=== PATIENT | female | born 2000 | race Caucasian/White ===

== ENCOUNTER 2024-07-07 08:50 | Emergency (ER) | payer MEDICAID, SELFPAY ==
--- OUTSIDE RECORDS SUMMARY | 2024-07-07 08:59 | XMS_ITS | Encounter Summary ---
Author Organization [facility] Address [address] [place] [address] Phone Care Team Providers Care Aboriginal Education Teacher Name Role Phone Giovanna Gonzalez APRN, CNP Primary Care Provider Encounter Details Date Type Department Care Team (Late st Contact Info) Description 07/03/2024 Transcribe Orders [facility] Central Scheduling [address] [place] [address] Giovanna Gonzalez APRN, MARKET PRESIDENT [address] [place] [address] Social History Tobacco Use Types Packs/Day Years Used Date Smoking Tobacco: Never Smokeless Tobacco: Never Alcohol Use Standard Drinks/Week Comments No 0 (1 standard drink = 0.6 oz pur e alcohol) Sexually Active Control Partners Comments Yes Comments No Sex and Gender Information Value Date Recorded Sex Assigned at Not on file Legal Sex Female 2:16 PM DRUG COORDINATOR Gender Identity Not on file Sexual Orientation Not on file documented as of this encounter Plan of Treatment Upcoming Encounters Date Type Department Care Team (Late st Contact Info) Description 07/16/2024 7:30 AM CDT Appointment [facility] Ultrasound [address] [place] [id number] Giovanna Gonzalez APRN, MARKET PRESIDENT [address] [place] [address] Giovanna Gonzalez APRN, MARKET PRESIDENT [address] [place] [address] Discharge Disposition: Discharged to home or Selfcare 07/16/2024 8:30 AM CDT Appointment [facility] Ultrasound [address] [place] [address] Giovanna Gonzalez APRN, LEVI [address] [place] [address] Discharge Disposition: Discharged to home or Selfcare documented as of this encounter Visit Diagnoses Not on filedocumented in this encounter Additional Health Concerns Assessment Noted Time PHQ-9 Depression Total Score: 0 03/28/19 18 8:00 AM DRUG COORDINATOR documented as of this encounter Care Teams Aboriginal Education Teacher Relationship Specialty Start Date End Date Giovanna Gonzalez APRN, MARKET PRESIDENT [address] [place] [address] PCP - General Advanced Practice Nurse 06/14/24 documented as of this encounter
--- OUTSIDE RECORDS SUMMARY | 2024-07-07 08:59 | XMS_ITS | Encounter Summary ---
Author Organization [facility] Address [address] [place] [address] Phone Care Team Providers Care Shade Maker Name Role Phone Giovanna Gonzalez APRN, CNP Primary Care Provider Encounter Details Date Type Department Care Team (Late st Contact Info) Description 07/03/2024 Transcribe Orders [facility] SCHEDULING [address] [place] [address] Giovanna Gonzalez APRN, TRAY FILLER [address] [place] [address] Social History Tobacco Use Types Packs/Day Years Used Date Smoking Tobacco: Never Smokeless Tobacco: Never Alcohol Use Standard Drinks/Week Comments No 0 (1 standard drink = 0.6 oz pur e alcohol) Sexually Active Control Partners Comments Yes Comments No Sex and Gender Information Value Date Recorded Sex Assigned at Not on file Legal Sex Female 2:16 PM ANTIQUE JEWELRY REPAIRER Gender Identity Not on file Sexual Orientation Not on file documented as of this encounter Plan of Treatment Upcoming Encounters Date Type Department Care Team (Late st Contact Info) Description 07/16/2024 7:30 AM CDT [facility]ment [facility] Ultrasound 1 [place] [address] Giovanna Gonzalez APRN, TRAY FILLER [address] [place] [address] Giovanna Gonzalez APRN, TRAY FILLER [address] [place] [address] Discharge Disposition: Discharged to home or Selfcare 07/16/2024 8:30 AM CDT Appointment [facility] Ultrasound 1 [place] [address] Giovanna Gonzalez APRN, TRAY FILLER [address] [place] [address] Discharge Disposition: Discharged to home or Selfcare documented as of this encounter Visit Diagnoses Not on filedocumented in this encounter Additional Health Concerns Assessment Noted Time PHQ-9 Depression Total Score: 0 03/28/19 18 8:00 AM ANTIQUE JEWELRY REPAIRER documented as of this encounter Care Teams Shade Maker Relationship Specialty Start Date End Date Giovanna Gonzalez APRN, TRAY FILLER [address] [place] [address] PCP - General Advanced Practice Nurse 06/14/24 documented as of this encounter
--- OUTSIDE RECORDS SUMMARY | 2024-07-07 08:59 | XMS_ITS | Referral Summary ---
Author Organization [facility] Address [address] [place] [address] Care Team Providers Care Ad Compositor Name Role Phone Giovanna Gonzalez NP Primary Care Provider [phone] Encounters Date Type Department Care Team Description 07/04/2024 Orders Only [facility] Health Information Management 1 [place] [address] Scanning, Provider from Last 3 Months Allergies Active Allergy Reactions Criticality Noted Date Comments Depo-Provera Contraceptive Seizures High 4 Used x 6-12 months. With last injection developed tachycardia, seizure activity. Medications levonorgestreL-eth inyl estrad (Levora-28) 0.15-0.03 mg per tabletIndications: Oral contraceptive pill surveillance Take 1 tablet by mouth daily 84 tablet 4 4 Active ibuprofen (ADVIL,MOTRIN) 800 mg tabletIndications: Facial trauma, initial encounter Take 1 tablet (800 mg total) by mouth 3 (three) times a day 90 tablet 4 Active Active Problems Problem Noted Date Diagnosed Date Nausea and vomiting 03/25/2016 Overview (06/16/2016): Nausea and vomiting, intractability of vomiting not specified, unspecified vomiting type Acute sinusitis 04/06/2015 Overview (10/10/2023): Note: Unchanged Viral syndrome 04/06/2015 Overview (10/10/2023): Note: Unchanged Allergic rhinitis 11/10/2013 Overview (10/10/2023): Note: Unchanged Acne 03/01/2013 Overview (10/10/2023): Note: Unchanged Immunizations Immunization Administration Dates Next Due Tdap 07/30/2021 Social History Tobacco Use Types Packs/Day Years Used Date Smoking Tobacco: Former Smokeless Tobacco: Never Tobacco Cessation:Counseling Given: Yes Alcohol Use Standard Drinks/Week Comments No 0 (1 standard drink = 0.6 oz pur e alcohol) Personal Safety Answer Date Recorded Getting School Help Needed Not on file 04/11 Comments No Sex and Gender Information Value Date Recorded Sex Assigned at Not on file Legal Sex Female 5:08 AM CDT Gender Identity Not on file Sexual Orientation Not on file Occupation Industry Job Start Date Job End Date Not on file Not on file Not on file Not on file Last Filed Vital Signs Vital Sign Reading Time Taken Comments Blood Pressure 110/70 10/10/2023 12:26 PM CDT Pulse 100 10/10/2023 12:26 PM CDT Temperature 37.1 C (98.7 F) 10/10/2023 12:26 PM CDT Respiratory Rate 20 10/10/2023 12:26 PM CDT Oxygen Saturation 100% 10/10/2023 12:26 PM CDT Inhaled Oxygen Concentration - - Weight 56.7 kg (125 lb) 10/10/2023 12:26 PM CDT Height 165.1 cm (5' 5 ) 04/21/2023 9:44 AM AIRLINE STEWARDESS Body Mass Index 20.8 04/21/2023 9:44 AM AIRLINE STEWARDESS Plan of Treatment Not on file Procedures Procedure Name Priority Date/Time Associated Diagnosis Comments SCAN - OTHER ORDERS 07/04/2024 N. GONORRHOEAE/C. TRACHOMATIS AMPLIFICATION Routine 04/21/2023 11:22 AM AIRLINE STEWARDESS Screening examination for venereal disease PAP WITH REFLEX TO HIGH RISK HPV Routine 04/21/2023 10:16 AM AIRLINE STEWARDESS Screening for malignant neoplasm of the cervix from Last 3 Months or Most Recently Relevant to Health Maintenance Results * SCAN - OTHER ORDERS (07/04/2024) us Provider Scanning Final Result * N. gonorrhoeae/C. trachomatis Amplification Thin prep (04/21/2023 11:22 AM AIRLINE STEWARDESS) C. trachomatis Not Detected GRACE VASQUES Comment:Testing performed by : [facility], [address] [place] [address]., [address] N. gonorrhoeae Not Detected GRACE VASQUES Comment: Interpretive Data This assay detects Chlamydia trachomatis and Neisseria gonorrhoeae by nucleic acid amplification testing (NAAT). This assay has been cleared by the [place] Food and Drug administration. The performance characteristics of this test have been verified by the [facility] Molecular Infectious Disease laboratory. The performance characteristics of this test have not been evaluated in individuals less than 14 years of age. Current Interpretive Data was last revised on 2023. Testing performed by: [facility], [address] [place] [address]., [address] Thin prep (None) 04/21/2023 11:22 AM AIRLINE STEWARDESS 04/24/2023 12:51 PM AIRLINE STEWARDESS Cristina Grimes MD LAB MICROBIOLOGY - [facility] ORDERABLES Final Result GRACE [address] Department [place] [address] * Pap with reflex to High Risk HPV and Genotyping (Cytology Component) (04/21/2023 10:16 AM AIRLINE STEWARDESS) Thin prep (Pap test) 04/21/2023 10:16 AM AIRLINE STEWARDESS 04/21/2023 10:16 AM AIRLINE STEWARDESS Narrative PATHOLOGY CH - 04/26/2023 3:26 PM AIRLINE STEWARDESS [facility] Department of Pathology [address] [place] [id number] Final Report Note to Patients: This report may contain a detailed description of human tissue sent by a health care provider to the laboratory for pathologic evaluation. The content of this report is essential for diagnosis and may provide important critical findings. This information may be unfamiliar to patients to review without a medical professional present. It is advised that the patient review this report in the presence of a health care provider who can answer questions and explain the details. Patient Name: ALIVIA HAMMOND Address: [address] [place] [id number] Gender: F : 2000 (Age: 23) Service: Location: [facility] #: [id number] Patient Type: SPECIMEN Taken: 04/21/2023 Received: 04/21/2023 Accessioned:: 04/24/2023 Reported: 04/26/2023 Physician(s): MD Cristina Simmons MD Diagnosis: SOURCE OF SPECIMEN Imaged Thinprep Pap Test w/ Reflex HPV - Firewall Engineer Cytologic Material: STATEMENT OF ADEQUACY - Satisfactory for evaluation; endocervical/transformation zone component present GENERAL CATEGORIZATION: - Negative for intraepithelial lesion or malignancy INTERPRETATION: - Reactive/reparative cell changes ALFREDO Wong(ASCP)Afshin Justice M.D. Report Electronically Reviewed and Signed Out By Afshin Justice M.D. 04/26/2023 15:26:25Specimen(s) Received: A: Imaged Thinprep Pap Test w/ Reflex HPV - Firewall Engineer Cytologic Material Clinical History: Last Menstrual Period: 04/15/23 The Pap test is a screening test used to aid in the detection of cervical cancer and its precursors. It should not be the sole means by which malignant and premalignant lesions are diagnosed. Both false negative and false positive results may occur. It also has poor sensitivity for the detection of endometrial lesions and should not be used to evaluate suspected endometrial abnormalities. For these reasons it is most important to obtain Pap tests at regular intervals. The performance characteristics of some immunohistochemical stains, fluorescence in-situ hybridization tests and immunophenotyping by flow cytometry cited in this report (if any) were determined by the Surgical Pathology Department at [facility] as part of an ongoing quality assurance advisor program and in compliance with federally mandated regulations drawn from the Clinical Laboratory Improvement Act of 1988 (CLIA '88). Some of these tests rely on the use of analyte specific reagents and are subject to specific labeling requirements by the [place] Food and Drug Administration. Such diagnostic tests may only be performed in a facility that is certified by the Department of Health and Human Services as a high complexity laboratory under CLIA '88. The FDA has determined that such clearance or approval is not necessary. This test is used for clinical purposes. It should not be regarded as investigational or for research. Nevertheless, federal rules concerning the medical use of analyte specific reagents require that the following disclaimer be attached to the report: This test was developed and its performance characteristics determined by the Surgical Pathology Department [facility]. It has not been cleared or approved by the U. S. Food and Drug Administration. Cristina Grimes MD LAB CYTOLOGY ORDERABL ES Final Result PATHOLOGY [address] [place] [address] from Last 3 Months or Most Recently Relevant to Health Maintenance Insurance IDPA Care Teams Ad Compositor Relationship Specialty Start Date End Date Giovanna Gonzaelz NP [address] [place] [address] PCP - General Nurse Practitioner 06/25/24
--- OUTSIDE RECORDS SUMMARY | 2024-07-07 08:59 | XMS_ITS | Clinical Summary ---
Author Organization [facility] Address [address] [place] [address] Care Team Providers Care Food Trades Assistants Name Role Phone Giovanna Gonzalez NP Primary Care Provider [phone] Allergies Active Allergy Reactions Criticality Noted Date [...] Unchanged Acne 03/01/2013 Overview (10/10/2023): Note: Unchanged Encounters Date Type Department Care Team Description 07/04/2024 Orders Only [facility] Health Information Management 1 [place] [address] Scanning, Provider from Last 3 Months Immunizations Immunization Administration Dates Next Due Tdap 07/30/2021 Family History Medical History Relation Name Comments Lung cancer Paternal Grandfather Stroke Paternal Grandfather Relation Name Status Comments Paternal Grandfather Social History Tobacco Use Types Packs/Day Years [...] file Not on file Not on file Obstetrics History Para Term AB IAB SAB Ectopic Multiple Livin g Live Births 1 1 1 Date Outcome GA Total Labor Labor/2nd/3rd Weight Sex Type Anes PTL Tala A1 A5 Name Clin 10/2021 SAB SAB Last Filed Vital Signs Vital Sign Reading [...] cm (5' 5 ) 04/21/2023 9:44 AM POWERHOUSE MECHANIC SUPERVISOR Body Mass Index 20.8 04/21/2023 9:44 AM POWERHOUSE MECHANIC SUPERVISOR Plan of Treatment Health Maintenance Due Date Last Done Comments Depression Screening 2000 Hepatitis C Screening 2000 HPV Vaccines (1 - 3-dose series) 01/11/2015 Cervical Cancer Screening 04/21/2024 04/21/2023 Chlamydia and Gonorrhea (GC/CT) Screening 04/21/2024 04/21/2023 Regular Well Visit/Exam 18-64 04/21/2024 04/21/2023 Influenza Vaccine (Season Ended) 2024 DTaP/Tdap/Td Vaccine (8 - Td or Tdap) 07/31/2031 07/30/2021, 09/25/2012, 08/05/2005, Additional history exists Pneumococcal vaccine <65 Aged Out 001, 2000, 2000, Additional history exists No longer eligible based on patient's age to complete this topic Hepatitis B Screening Completed 03/01/2001 , 03/01/2001, 2000, Additional history exists Varicella Vaccines Completed 09/25/2012, 03/01/2001 Procedures Procedure Name Priority Date/Time Associated Diagnosis Comments SCAN - OTHER ORDERS 07/04/2024 N. GONORRHOEAE/C. TRACHOMATIS AMPLIFICATION Routine 04/21/2023 11:22 AM POWERHOUSE MECHANIC SUPERVISOR Screening examination for venereal disease PAP WITH REFLEX TO HIGH RISK HPV Routine 04/21/2023 10:16 AM POWERHOUSE MECHANIC SUPERVISOR Screening for malignant neoplasm of the cervix from Last 3 Months or Most Recently Relevant to Health Maintenance Results * SCAN - OTHER ORDERS (07/04/2024) us Provider Scanning Final Result * N. gonorrhoeae/C. trachomatis Amplification Thin prep (04/21/2023 11:22 AM POWERHOUSE MECHANIC SUPERVISOR) C. trachomatis Not Detected GRACE VASQUES Comment:Testing performed by : [facility], [address] [facility], [place]., [address] N. gonorrhoeae Not Detected GRACE Comment: Interpretive Data This assay detects Chlamydia trachomatis and Neisseria gonorrhoeae by nucleic acid amplification testing (NAAT). This assay has been cleared by the [place] Food and Drug administration. The performance characteristics of this test have been verified by the [facility] Molecular Infectious Disease laboratory. The performance characteristics of this test have not been evaluated in individuals less than 14 years of age. Current Interpretive Data was last revised on 2023. Testing performed by: [facility], [address] [place] [address]., [address] Thin prep (None) 04/21/2023 11:22 AM POWERHOUSE MECHANIC SUPERVISOR 04/24/2023 12:51 PM POWERHOUSE MECHANIC SUPERVISOR us Cristina Grimes MD LAB MICROBIOLOGY - [facility] ORDERABLES Final Result GRACE [address] Department of Laboratories [place] [id number] * Pap with reflex to High Risk HPV and Genotyping (Cytology Component) (04/21/2023 10:16 AM POWERHOUSE MECHANIC SUPERVISOR) Thin prep (Pap test) 04/21/2023 10:16 AM POWERHOUSE MECHANIC SUPERVISOR 04/21/2023 10:16 AM POWERHOUSE MECHANIC SUPERVISOR Narrative PATHOLOGY - 04/26/2023 3:26 PM POWERHOUSE MECHANIC SUPERVISOR [facility] Department of Pathology [address] [place] [phone] Final Report Note to Patients: This [...] the details. Patient Name: ALIVIA HAMMOND Address: [address] [place] [address] Gender: F : 2000 (Age: 23) Service: Location: Hospital #: [id number] Patient Type: SPECIMEN Taken: 04/21/2023 Received: 04/21/2023 Accessioned:: 04/24/2023 Reported: 04/26/2023 Physician(s): MD Cristina Simmons MD Diagnosis: SOURCE OF SPECIMEN Imaged Thinprep Pap Test w/ Reflex HPV - It Intern Cytologic Material: STATEMENT OF ADEQUACY - Satisfactory for evaluation; endocervical/transformation zone component present GENERAL CATEGORIZATION: - Negative for intraepithelial lesion or malignancy INTERPRETATION: - Reactive/reparative cell changes ALFREDO Wong(ASCP)Afshin Justice M.D. Report Electronically Reviewed and Signed Out By Afshin Justice M.D. 04/26/2023 15:26:25Specimen(s) Received: A: Imaged Thinprep Pap Test w/ Reflex HPV - It Intern Cytologic Material Clinical History: Last Menstrual Period: [...] determined by the Surgical Pathology Department at [facility] as part of an ongoing air quality engineer program and in compliance with federally mandated [...] characteristics determined by the Surgical Pathology Department [facility]. It has not been cleared or approved by the [place]. S. Food and Drug Administration. us Cristina Grimes MD LAB CYTOLOGY ORDERABL ES Final Result PATHOLOGY [address] [place] [address] from Last 3 Months or Most Recently Relevant to Health Maintenance Insurance IDPA Care Teams Food Trades Assistants Relationship Specialty Start Date End Date Giovanna Gonzalez NP [address] [place] [address] PCP - General Nurse Practitioner 06/25/24
--- OUTSIDE RECORDS SUMMARY | 2024-07-07 08:59 | XMS_ITS | Clinical Summary ---
Author Organization [facility] Address [address] [place] [address] Care Team Providers Care Quality Improvement Manager Name Role Phone Unavailable Primary Care Provider Unavailabl e Source Comments [facility],non-owned Affiliates and Associated Physician Practices is amultiple site organization consisting of ambulatory clinics and hospital sitesin [place], [place], [place] and [place]. This disclosure is being madepursuant to the Care Everywhere program and may not contain all information available regarding this patient. Last updated 17.[facility] Allergies No known active allergies Medications * Be aware that medications may not be up to date on this document. Alwaysverify current medications with the patient. No known medications Social History Tobacco Use Types Packs/Day Years Used Date Smoking Tobacco: Never Smokeless Tobacco: Never Alcohol Use Standard Drinks/Week Comments No 0 (1 standard drink = 0.6 oz pur e alcohol) Comments Unknown Sex and Gender Information Value Date Recorded Sex Assigned at Not on file Legal Sex Female 2:03 PM CDT Gender Identity Not on file Sexual Orientation Not on file Last Filed Vital Signs Vital Sign Reading Time Taken Comments Blood Pressure 114/82 12/10/2017 2:05 PM CDT Pulse 74 12/10/2017 2:05 PM CDT Temperature 36.7 C (98.1 F) 12/10/2017 2:05 PM CDT Respiratory Rate 12 12/10/2017 2:05 PM CDT Oxygen Saturation 99% 12/10/2017 2:05 PM CDT Inhaled Oxygen Concentration - - Weight 49.4 kg (109 lb) 12/10/2017 2:05 PM CDT Height - - Body Mass Index - - Plan of Treatment Health Maintenance Due Date Last Done Comments HIV SCREENING 01/11/2015 HPV VACCINE (1 - 3-dose series) 01/11/2015 CHLAMYDIA/GONORRHEA SCREENING 2016 HEPATITIS C SCREENING 01/07/2018 DTAP/TDAP/TD VACCINES (1 - Tdap) 01/11/2019 HEPATITIS B VACCINE (1 of 3 - 19+ 3-dose series) 01/11/2019 COVID-19 VACCINE (1 - 2023-2 5 season) 2023 DEPRESSION SCREENING 03/06/2024 INFLUENZA VACCINE (Season Ended) 2024 ZOSTER VACCINE (1 of 2) 01/11/2050 HIB VACCINE Aged Out No longer eligi ble based on patient's age to complete this topic MENINGOCOCCAL (Group B) VACC INE SHARED DECISION-MAKING Aged Out No longer eligibl e based on patient's age to complete this topic MENINGOCOCCAL GROUPS A/C/Y/W VACCINE Aged Out No longer eligible b ased on patient's age to complete this topic PNEUMOCOCCAL VACCINE Aged Out No long er eligible based on patient's age to complete this topic Insurance MEDICAID - PENDING
--- OUTSIDE RECORDS SUMMARY | 2024-07-07 08:59 | XMS_ITS | Clinical Summary ---
Author Organization [facility] Address [address] [place] [address] Phone Care Team Providers Care Metal Molder Name Role Phone Giovanna Gonzalez APRN, CNP Primary Care Provider Allergies No known active allergies Medications triamcinolone (KENALOG) 0.025 % Cream Apply 2 times daily. Application Site: hands (Description and Location) 15 g 4 Active Additional Information Patient not taking.Reported on 06/08/2024 traMADol (ULTRAM) 50 MG TabletIndicatio ns:Lower abdominal pain Take 1-2 Tablets by mouth every 6 hours as needed for Moderate or more severe pain for up to 5 days. 15 Tablet 5 06/14/19 25 indomethacin (INDOCIN) 50 MG Capsule Take 1 Capsule by mouth 3 times daily as needed for Moderate or more severe pain for up to 7 days. 20 Capsule 5 06/16/19 25 ondansetron (ZOFRAN) 4 MG Tablet Take 1-2 Tablets by mouth every 8 hours as needed for Nausea - 1st line for up to 7 days. 20 Tablet 5 06/16/19 25 Active Problems No known active problems Encounters Date Type Department Care Team Description 07/03/2024 Transcribe Orders [facility]AL SCHEDULING [address] [place] [address] Giovanna Gonzalez APRN, CNP 07/03/2024 Transcribe Orders [facility] Central Scheduling [address] [place] [address] Giovanna Gonzalez APRN, CNP 07/03/2024 Transcribe Orders [facility] Central Scheduling [address] [place] [address] Giovanna Gonzalez APRN, CNP 06/25/2024 Transcribe Orders [facility] Central Scheduling [address] [place] [address] Giovanna Gonzalez APRN, LEVI Abnormal CT of the abdomen (Primary Dx) 06/13/2024 Transcribe Orders [facility] Central Scheduling [address] [place] [address] Giovanna Gonzalez APRN, CNP Pain pelvic (Primary Dx) 06/08/2024 3:48 PM CDT - 06/08/2024 6:01 PM CDT Emergency [facility] Emergency [address] [place] [address] Parvez Spangler MD Lower abdominal pain Discharge Disposition: Discharged to home or Selfcare 06/08/2024 12:15 PM CDT Urgent Care Visit [facility] [address] [place] [address] Siobhan Dewitt APRN, MOSAIC LAYER Lower abdominal pain (Primary Dx); Flank pain Discharge Disposition: Discharged to home or Selfcare 06/08/2024 Travel from Last 3 Months Social History Tobacco Use Types Packs/Day Years Used Date Smoking Tobacco: Never Smokeless Tobacco: Never Alcohol Use Standard Drinks/Week Comments No 0 (1 standard drink = 0.6 oz pur e alcohol) Sexually Active Control Partners Comments Yes Comments No Sex and Gender Information Value Date Recorded Sex Assigned at Not on file Legal Sex 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 Gender Identity Not on file Sexual Orientation Not on file Last Filed Vital Signs Vital Sign Reading Time Taken Comments Blood Pressure 134/82 06/08/2024 5:00 PM CDT Pulse 89 06/08/2024 5:45 PM CDT Temperature 35.9 C (96.7 F) 06/08/2024 3:52 PM CDT Respiratory Rate 1 06/08/2024 5:45 PM CDT Oxygen Saturation 100% 06/08/2024 5:45 PM CDT Inhaled Oxygen Concentration - - Weight 50.3 kg (111 lb) 06/08/2024 3:52 PM CDT Height 165.1 cm (5' 5 ) 06/08/2024 3:52 PM CDT Body Mass Index 18.47 06/08/2024 3:52 PM CDT Plan of Treatment Upcoming Encounters Date Type Department Care Team (Late st Contact Info) Description 07/16/2024 7:30 AM CDT [facility] [address] [place] [address] Giovanna Gonzalez APRN, MOSAIC LAYER [address] [place] [address] Giovanna Gonzalez, EVENT DESIGNER, MOSAIC LAYER [address] [place] [address] Discharge Disposition: Discharged to home or Selfcare 07/16/2024 8:30 AM CDT [facility]ment [facility] Ul[facility]ound [address] [place] [address] Giovanna Gonzalez, EVENT DESIGNER, MOSAIC LAYER [address] [place] [address] Discharge Disposition: Discharged to home or Selfcare Health Maintenance Due Date Last Done Comments Hepatitis C Virus (HCV) Screening 2000 Human Papillomavirus (HPV) Immunization (1 - 3-dose series) 01/11/2015 Pap Smear 01/11/2021 SARS-COV-2 Immunization ( season) 2023 Influenza Immunization (Season Ended) 2024 Respiratory Syncytial Virus (RSV) Immunization (Adult) (1 - 1-dose 75+ series) 01/11/2075 Pneumococcal Immunization Combined Aged Out 2000, 2000, 2000 No longer eligible based on patient's age to complete this topic Polio (IPV) Immunization Discontinued 001, 2000, 2000 Hepatitis B Immunization Completed 001, 03/01/2001, 2000, Additional history exists Measles Mumps Rubella (MMR) Immunization Discontinued 09/15/2005, 08/05/2005 Varicella Immunization Discontinued 09/25/2012, 2000 Meningococcal Immunization (ACWY) Completed 11/08/2017, 09/25/2012 DTaP/Tdap/Td Immunization Discontinued 2021, 09/25/2012, 08/05/2005, Additional history exists TdaP Immunization Completed 07/30/2021, 09/25/2012 Rotavirus Immunization Aged Out No lo nger eligible based on patient's age to complete this topic Procedures Procedure Name Priority Date/Time Associated Diagnosis Comments CT ABDOMEN PELVIS W/ CONTRAST Stat with Interpretation 06/08/2024 5:15 PM CDT POCT URINE HCG () STAT 06/08/2024 4:00 PM CDT URINALYSIS REFLEX IF INDICATED BY ABNORMAL RESULTS STAT 06/08/2024 4:00 PM CDT CBC WITH AUTO DIFFERENTIAL STAT 06/08/2024 3:56 PM CDT LIPASE STAT 06/08/2024 3:56 PM CDT CMP (COMPREHENSIVE METABOLIC PANEL) STAT 06/08/2024 3:56 PM CDT COMPLETE BLOOD COUNT (CBC) WITH DIFF STAT 06/08/2024 3:56 PM CDT POCT URINE HCG () Routine 06/08/2024 12:43 PM CDT Lower abdominal pain POCT UA AUTOMATED W/O MICRO Routine 06/08/2024 12:24 PM CDT Flank pain from Last 3 Months Results * CT ABDOMEN PELVIS W/ CONTRAST (06/08/2024 5:15 PM CDT) Anatomical Region Laterality Modality Abdomen N/A Computed Tomogra phy 06/08/2024 5:43 PM CDT Impressions 06/08/2024 5:46 PM CDT IMPRESSION: 1. No discrete CT findings to explain patient's abdominal pain. 2. 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 Comparison to prior imaging would be helpful, if available. If clinically indicated, MRI could be considered for further evaluation and characterization. Narrative 06/08/2024 5:46 PM CDT EXAM DESCRIPTION: CT ABDOMEN PELVIS W/ CONTRAST REASON FOR STUDY: pt c/o intermittent lower abdominal pain that comes in waves with nausea that started yesterday. no hx of surgery TECHNIQUE: CT scan of the abdomen and pelvis performed with intravenous and without oral contrast using helical scanning technique with dynamic intravenous contrast injection. Reconstructed coronal and sagittal MPR images reviewed. All images stored on PACS. Automated exposure control was used as a dose optimization technique for this examination. CONTRAST TYPE/DOSE: 56mL of IOPAMIDOL 76 % IV SOLN injected COMPARISON: None available FINDINGS: LOWER CHEST: Mild scattered subsegmental atelectasis. No pleural effusion. Imaged portions of the heart and esophagus are within normal limits. 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 LIVER: Normal size. There is a hypoattenuating structure with nodular enhancing components in the inferior right hepatic lobe measuring up to proximally 11 mm which could reflect a hemangioma. Mild hepatic steatosis. Focal fatty infiltration adjacent the hepatic falciform ligament. The hepatic and portal veins are patent. GALLBLADDER: Subtle gallbladder intraluminal hyperattenuation can be seen with gallbladder sludge and/or cholelithiasis. No definitive CT evidence of acute cholecystitis. BILE DUCTS: No intrahepatic or extrahepatic ductal dilatation. SPLEEN: Normal size. No focal lesions. PANCREAS: There is possibly mild fatty infiltration of the pancreatic head/uncinate process. No identified cystic or solid masses. No significant calcifications. No adjacent inflammation or peripancreatic fluid collections. Pancreatic duct not dilated. ADRENALS: Normal. KIDNEYS/URINARY TRACT: Mild left renal parenchymal scarring. Subcentimeter hypoattenuating lesion in the upper pole of the right kidney is too small to characterize and may reflect a cyst. No discrete other renal lesions.. No visualized stones. No hydronephrosis or hydroureter. Urinary bladder is unremarkable. GI: The stomach is normal. The small bowel and colon are normal in course and caliber with no evidence of obstruction or inflammation. The appendix is normal. PERITONEUM: No ascites or free air. No lymphadenopathy. RETROPERITONEUM: No mass or adenopathy. REPRODUCTIVE: No significant abnormality. Adnexal follicles are present. VASCULATURE: No abdominal aortic aneurysm. The abdominal aorta and its branches are patent. MUSCULOSKELETAL: No acute fractures or aggressive osseous lesions. THIS IS AN ELECTRONICALLY VERIFIED FINAL REPORT 06/08/2024 5:43 PM - Electronically signed by Porter Baig M.D. AT: AT Report ID: [id number] Reading Location: [id number] Procedure Note Porter Baig MD - 06/08/2024 EXAM DESCRIPTION: CT ABDOMEN PELVIS W/ CONTRAST REASON FOR STUDY: pt c/o intermittent lower abdominal pain that comes in waves with nausea that started yesterday. no hx of surgery TECHNIQUE: CT scan of the abdomen and pelvis performed with intravenous and without oral contrast using helical scanning technique with dynamic intravenous contrast injection. Reconstructed coronal and sagittal MPR images reviewed. All images stored on PACS. Automated exposure control was used as a dose optimization technique for this examination. CONTRAST TYPE/DOSE: 56mL of IOPAMIDOL 76 % IV SOLN injected COMPARISON: None available FINDINGS: LOWER CHEST: Mild scattered subsegmental atelectasis. No pleural effusion. Imaged portions of the heart and esophagus are within normal limits. 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 LIVER: Normal size. There is a hypoattenuating structure with nodular enhancing components in the inferior right hepatic lobe measuring up to proximally 11 mm which could reflect a hemangioma. Mild hepatic steatosis. Focal fatty infiltration adjacent the hepatic falciform ligament. The hepatic and portal veins are patent. GALLBLADDER: Subtle gallbladder intraluminal hyperattenuation can be seen with gallbladder sludge and/or cholelithiasis. No definitive CT evidence of acute cholecystitis. BILE DUCTS: No intrahepatic or extrahepatic ductal dilatation. SPLEEN: Normal size. No focal lesions. PANCREAS: There is possibly mild fatty infiltration of the pancreatic head/uncinate process. No identified cystic or solid masses. No significant calcifications. No adjacent inflammation or peripancreatic fluid collections. Pancreatic duct not dilated. ADRENALS: Normal. KIDNEYS/URINARY TRACT: Mild left renal parenchymal scarring. Subcentimeter hypoattenuating lesion in the upper pole of the right kidney is too small to characterize and may reflect a cyst. No discrete other renal lesions.. No visualized stones. No hydronephrosis or hydroureter. Urinary bladder is unremarkable. GI: The stomach is normal. The small bowel and colon are normal in course and caliber with no evidence of obstruction or inflammation. The appendix is normal. PERITONEUM: No ascites or free air. No lymphadenopathy. RETROPERITONEUM: No mass or adenopathy. REPRODUCTIVE: No significant abnormality. Adnexal follicles are present. VASCULATURE: No abdominal aortic aneurysm. The abdominal aorta and its branches are patent. MUSCULOSKELETAL: No acute fractures or aggressive osseous lesions. THIS IS AN ELECTRONICALLY VERIFIED FINAL REPORT 06/08/2024 5:43 PM - Electronically signed by Porter Baig M.D. AT: AT Report ID: [id number] Reading Location: [id number] IMPRESSION: 1. No discrete CT findings to explain patient's abdominal pain. 2. 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 Comparison to prior imaging would be helpful, if available. If clinically indicated, MRI could be considered for further evaluation and characterization. Parvez Spangler MD IM CT ORDERABLES Ester patel Result * (ABNORMAL) Urinalysis w/ Reflex (06/08/2024 4:00 PM CDT) SPECIFIC GRAVITY 1.010 1.003 - 1.030 06/08/2024 5:05 PM CDT [facility] URINE PH 8.0 5.0 - 9.0 06/08/2024 5:05 PM CDT [facility] WBC ESTERASE Negative Negative 06/08/2024 5:05 PM CDT [facility] NITRITE Negative Negative 06/08/2024 5:05 PM CDT [facility] PROTEIN, RANDOM URINE 30 mg/dL(A) Negative 06/08/2024 5:05 PM CDT [facility] URINE GLUCOSE, QUAL Negative Negative 06/08/2024 5:05 PM CDT [facility] URINE KETONES Negative Negative 06/08/2024 5:05 PM CDT [facility] UROBILINOGEN Normal Normal mg/dL 06/08/2024 5:05 PM CDT [facility] URINE BLOOD Negative Negative remedios/ul 06/08/2024 5:05 PM CDT [facility] URINALYSIS COLOR Yellow 06/09/19 5:05 PM CDT [facility] URINALYSIS CLARITY Slightly Cloudy 06/08/2024 5:05 PM CDT [facility] WBC (Urine) 0-5 Negative, 0-5 /hpf 06/08/2024 5:05 PM CDT [facility] URINE RBC'S Negative Negative, 0-2 /hpf 06/08/2024 5:05 PM CDT [facility] EPITHELIAL CELLS Large amount squamous /lpf 06/08/2024 5:05 PM CDT [facility] BACTERIA, URINE Few(A) Negative /hpf 06/08/2024 5:05 PM CDT [facility] Urine URINE SPECIMEN / Unknown Non-Phlebotomy Collection / Unknown 06/08/2024 4:00 PM CDT 06/08/2024 4:30 PM CDT us Parvez Spangler MD URINE ORDERABLES Final Result [facility] [address] [place] [address] * POCT Urine HCG () (06/08/2024 4:00 PM CDT) Only the most recent of2 resultswithin the time period is included. Pathologist [facility] POC URINE Negative POC URINE CONTROL Procurement Manager Pass Urine 06/08/2024 4:00 PM CDT Parvez Spangler MD POINT OF CARE TESTING (MANUAL) Final Result * (ABNORMAL) CBC with Auto Differential (06/08/2024 3:56 PM CDT) [facility] WBC 3.86(L) 4.00 - 12.00 10(3)/mcL 06/08/2024 4:37 PM CDT [facility] RBC 4.21 3.80 - 5.30 10(6)/mcL 06/08/2024 4:37 PM CDT [facility] HEMOGLOBIN (HGB) 14.0 12.0 - 15.8 g/dL 06/08/2024 4:37 PM CDT [facility] HEMATOCRIT (HCT) 40.5 36.0 - 47.0 % 06/08/2024 4:37 PM CDT [facility] MCV 96.2(H) 82.0 - 96.0 fL 06/08/2024 4:37 PM CDT [facility] MCH 33.3 26.0 - 34.0 pg 06/08/2024 4:37 PM CDT [facility] MCHC 34.6 31.0 - 36.0 g/dL 06/08/2024 4:37 PM CDT [facility] PLATELET COUNT 219 140 - 440 10(3)/mcL 06/08/2024 4:37 PM CDT [facility] RDW 13.3 11.8 - 15.5 % 06/08/2024 4:37 PM CDT [facility] MPV 9.3(L) 9.7 - 12.4 fL 06/08/2024 4:37 PM CDT [facility] NEUTROPHILS 44.5(L) 47.0 - 73.0 % 06/08/2024 4:37 PM CDT [facility] LYMPHOCYTES 47.2(H) 18.0 - 42.0 % 06/08/2024 4:37 PM CDT [facility] MONOCYTES 6.0 4.0 - 12.0 % 06/08/2024 4:37 PM CDT [facility] EOSINOPHILS 1.0 0.0 - 5.0 % 06/08/2024 4:37 PM CDT [facility] BASOPHILS 1.3(H) 0.0 - 1.0 % 06/08/2024 4:37 PM CDT [facility] ABSOLUTE NEUTROPHILS 1.72 1.60 - 7.70 10(3)/mcL 06/08/2024 4:37 PM CDT [facility] ABSOLUTE LYMPHOCYTES 1.82 1.30 - 3.20 10(3)/[facility] 06/08/2024 4:37 PM CDT [facility] ABSOLUTE MONOCYTES 0.23 0.20 - 1.00 10(3)/[facility] 06/08/2024 4:37 PM CDT [facility] ABSOLUTE EOSINOPHIL 0.04 0.00 - 0.40 10(3)/[facility] 06/08/2024 4:37 PM CDT [facility] ABSOLUTE BASOPHILS 0.05 0.00 - 0.10 10(3)/[facility] 06/08/2024 4:37 PM CDT [facility] NRBC PER 100 WBC 0 06/09/19 4:37 PM CDT [facility] Blood Venipuncture / Unknown 06/08/2024 3:56 PM CDT 06/08/2024 4:30 PM CDT us Parvez Spangler MD HEMATOLOGY ORDERABLES Final Result Performing Organization Address City/[facility]/ZIP Co de Phone Number [facility] [address] [place] [address] * Lipase (06/08/2024 3:56 PM CDT) LIPASE 44 8 - 78 U/L 06/08/2024 4:56 PM CDT [facility] Blood Venipuncture / Unknown 06/08/2024 3:56 PM CDT 06/08/2024 4:30 PM CDT us Parvez Spangler MD CHEMISTRY ORDERABLES F inal Result Performing Organization Address [facility] Co de Phone Number [facility] [address] [place] [address] * (ABNORMAL) CMP (06/08/2024 3:56 PM CDT) SODIUM 144 136 - 145 mmol/L 06/08/2024 4:56 PM CDT [facility] POTASSIUM 3.6 3.5 - 5.1 mmol/L 06/08/2024 4:56 PM CDT [facility] CHLORIDE 105 98 - 107 mmol/L 06/08/2024 4:56 PM CDT [facility] CO2, VENOUS 28 22 - 30 mmol/L 06/08/2024 4:56 PM CDT [facility] ANION GAP 14.6 <18.0 mmol/L 06/08/2024 4:56 PM CDT [facility] GLUCOSE 110(H) 70 - 99 mg/dL 06/08/2024 4:56 PM CDT [facility] BUN 9 5 - 18 mg/dL 06/08/2024 4:56 PM CDT [facility] CREATININE, BLOOD 0.64 0.60 - 1.00 mg/dL 06/08/2024 4:56 PM CDT [facility] BUN/CREATININE RATIO 14 12 - 20 ratio 06/08/2024 4:56 PM CDT [facility] TOTAL PROTEIN 8.4(H) 6.0 - 8.0 g/dL 06/08/2024 4:56 PM CDT [facility] ALBUMIN 4.7 3.5 - 5.0 g/dL 06/08/2024 4:56 PM CDT [facility] A/G RATIO 1.3 1.0 - 2.2 06/08/2024 4:56 PM CDT [facility] CALCIUM 9.3 8.7 - 10.5 mg/dL 06/08/2024 4:56 PM CDT [facility] T BILI 0.5 0.2 - 1.2 mg/dL 06/08/2024 4:56 PM CDT [facility] SGOT (AST) 65(H) <43 U/L 06/08/2024 4:56 PM CDT [facility] SGPT (ALT) 33 <56 U/L 06/08/2024 4:56 PM CDT [facility] ALKALINE PHOSPHATASE 60 40 - 150 U/L 06/08/2024 4:56 PM CDT [facility] GFR, ESTIMATED >60 >=60 06/08/2024 4:56 PM T [facility] Comment: Creatinine Clearance is the preferred criteria for selecting drug dose adjustments in renally impaired patients. The GFR is provided as additional pertinent clinical information. GFR is reported in mL/min/1.73 sq m. Calculation based on the Chronic Kidney Disease Epidemiology Collaboration (CKD- EPI) equation refit without adjustment for race. GFR, EST. >60 >=60 025 4:56 PM CDT [facility] GFR, EST. NONAFRICAN >60 >=60 06/08/2024 4:56 PM [facility] Blood Venipuncture / Unknown 06/08/2024 3:56 PM CDT 06/08/2024 4:30 PM CDT us Parvez Spangler MD CHEMISTRY ORDERABLES F inal Result [facility] [address] [place] [address] * POCT UA AUTOMATED W/O MICRO (06/08/2024 12:24 PM CDT) POC UA SPECIFIC GRAVITY 1.010 URINE PH 8.0 5.0 - 9.0 POC URINE LEUKOCYTES Negative Negative Daniel/uL POC URINE NITRITE Negative Negative POC URINE PROTEIN Negative Negative mg/dL POC URINE GLUCOSE Norm Negative, Norm mg/dL POC URINE KETONE Negative Negative mg/dL POC URINE UROBILINOGEN Norm Norm, 0.2 E.U./dL (mg/dL), 1 E.U./dL (mg/dL) POC URINE BILIRUBIN Negative Negative mg/dL POC URINE BLOOD INSTRUMENT Negative Negative Remedios/uL POC URINE COLOR Yellow POC URINE CLARITY Clear Urine 06/08/2024 12:2 4 PM CDT us Siobhan Dewitt EVENT DESIGNER, MOSAIC LAYER POINT OF CARE TESTI NG (MANUAL) Final Result from Last 3 Months Insurance [place] Care Teams Metal Molder Relationship Specialty Start Date End Date Giovanna Gonzalez APRN, MOSAIC LAYER [address] [place] [address] PCP - General Advanced Practice Nurse 06/14/24
--- OUTSIDE RECORDS SUMMARY | 2024-07-07 08:59 | XMS_ITS | Encounter Summary ---
Author Organization [facility] Address [address] [place] [address] Care Team Providers Care Credit Collector Name Role Phone Giovanna Gonzalez NP Primary Care Provider [phone] Encounter Details Date Type Department Care Team (Late st Contact Info) Description 07/04/2024 Orders Only [facility] Health Information Management [address] [place] [address] Scanning, Provider Social History Tobacco Use Types Packs/Day Years Used Date Smoking Tobacco: Former Smokeless Tobacco: Never Alcohol Use Standard Drinks/Week [...] file Not on file Not on file documented as of this encounter Plan of Treatment Not on file documented as of this encounter Procedures Procedure Name Priority Date/Time Associated Diagnosis Comments SCAN - OTHER ORDERS 07/04/2024 documented in this encounter Results * SCAN - OTHER ORDERS (07/04/2024) us Provider Scanning Final Result documented in this encounter Visit Diagnoses Not on filedocumented in this encounter Care Teams Credit Collector Relationship Specialty Start Date End Date Giovanna Gonzalez, MICKY [address] [place] [address] PCP - General Nurse Practitioner 06/25/24 documented as of this encounter
--- OUTSIDE RECORDS SUMMARY | 2024-07-07 08:59 | XMS_ITS | Encounter Summary ---
Author Organization [facility] Address [address] [facility] [place] [address] Phone Care Team Providers Care Turbine Mechanic Name Role Phone Giovanna Gonzalez APRN, CNP Primary Care Provider Encounter Details Date Type Department Care Team (Late st Contact Info) Description 07/03/2024 Transcribe Orders [facility] Central Scheduling [address] [place] [address] Giovanna Gonzalez APRN, CENTRAL SCHEDULER [address] [place] [address] Social History Tobacco Use Types Packs/Day Years Used Date Smoking Tobacco: Never Smokeless Tobacco: Never Alcohol Use Standard Drinks/Week Comments No 0 (1 standard drink = 0.6 oz pur e alcohol) Sexually Active Control Partners Comments Yes Comments No Sex and Gender Information Value Date Recorded Sex Assigned at Not on file Legal Sex Female 2:16 PM CHOIR DIRECTOR Gender Identity Not on file Sexual Orientation Not on file documented as of this encounter Plan of Treatment Upcoming Encounters Date Type Department Care Team (Late st Contact Info) Description 07/16/2024 7:30 AM CDT Appointment [facility] Ultrasound [address] [place] [id number] Giovanna Gonzalez APRN, CENTRAL SCHEDULER [address] [place] [address] Giovanna Gonzalez APRN, CENTRAL SCHEDULER [address] [place] [address] Discharge Disposition: Discharged to home or Selfcare 07/16/2024 8:30 AM CDT Appointment [facility] Ultrasound [address] [place] [address] Giovanna Gonzalez APRN, LEVI [address] [place] [address] Discharge Disposition: Discharged to home or Selfcare documented as of this encounter Visit Diagnoses Not on filedocumented in this encounter Additional Health Concerns Assessment Noted Time PHQ-9 Depression Total Score: 0 03/28/19 18 8:00 AM CHOIR DIRECTOR documented as of this encounter Care Teams Turbine Mechanic Relationship Specialty Start Date End Date Giovanna Gonzalez APRN, CENTRAL SCHEDULER [address] [place] [address] PCP - General Advanced Practice Nurse 06/14/24 documented as of this encounter
[2024-07-07 09:00] VITALS: BP 128/86; PULSE 129; RESP 20; TEMP 36.6; O2SAT 99
--- NOTE | 2024-07-07 09:16 | ED.SEIZURE ---
HPI - Seizure General Chief Complaint: Seizure Stated Complaint: seizure Time Seen by Provider: 07/07/24 09:16 Source: patient, family and RN notes reviewed Mode of arrival: ambulatory Limitations: no limitations History of Present Illness HPI Narrative: 24-year-old female presents Express Care with boyfriend in grandmother complaining of a possible seizure. Around 8:00 a.m. this morning boyfriend and grandmother witnessed the patient go unconscious and fall off the couch and was grandmother described as a grand mal like seizure. Grandmother stated the seizure lasted approximately 5-6 minutes. Grandmother states she is a registered nurse. Patient does not remember the event. Patient denies feeling any symptoms prior to the event. Patient reports she is having some abdominal pain and feels confused. Patient denies any lightheadedness, dizziness, chest pain, shortness of breath. Grandmother states that she had a seizure possibly at the age of 13 was not placed on any medications. Boyfriend and grandmother deny the patient hitting her head or any other injuries. Patient denies any loss of bowel or bladder or biting her tongue. Related Data Allergies Allergy/AdvReac Type Severity Reaction Status Date / Time No Known Allergies Allergy Verified 07/07/24 09:12 Review of Systems Review of Systems: CONSTITUTIONAL: Denies fever, chills, or sweats. EYES: Denies visual changes, redness, or discharge. ENT: Denies rhinorrhea, congestion, sore throat, or otalgia. CARDIOVASCULAR: Denies chest pain, palpitations, or edema. RESPIRATORY: Denies cough or dyspnea. GASTROINTESTINAL: Denies abdominal pain, nausea, vomiting, or diarrhea. GENITOURINARY: Denies dysuria, incontinence, or hematuria. SKIN: Denies rash or itching. MUSCULOSKELETAL: Denies back pain, joint pain, or myalgia. NEUROLOGIC: Denies headache, numbness, or weakness. Positive for seizure-like activity. PSYCHIATRIC: Denies anxiety or depression. All other systems reviewed are negative, except as documented in HPI. PMFSH Comments At the time of my signature, I reviewed and agree with the nursing past medical, surgical, social, and family history. There is no relevant family history pertinent to the patient complaint. Exam Narrative: GENERAL: This is a well-nourished, well-developed adult, in no apparent distress. They are non ill-appearing, nontoxic appearing. HEAD: normocephalic, atraumatic. EYES: Sclera clear/white. Conjunctiva normal. Vision is grossly intact. Extraocular movements intact. Pupils PERRLA EARS: External ears normal, Hearing grossly intact. NOSE: External nose normal THROAT: Mucous membranes moist MOUTH: Teeth intact. No injuries. Tongue is normal and atraumatic. NECK: Normal range of motion CARDIOVASCULAR: Regular rate and rhythm without murmurs, gallops, or rubs. RESPIRATORY: Clear to auscultation. Breath sounds equal bilaterally. No wheezes, rales, or rhonchi. GASTROINTESTINAL: Abdomen soft, non-tender, nondistended. Bowel sounds are active. No hepato-splenomegaly, or palpable masses. No guarding. SKIN: Pale, warm, Dry, intact with no suspicious lesions or rash, good texture and turgor. NEURO: awake, alert, and oriented to person, place and time. There were no obvious focal neurologic abnormalities. EXTREMITIES: No joint tenderness, effusion, or edema noted. BACK: Nontender without deformity. Course Course Emergency Course: Portions of this record may have been created with voice recognition software Level of Care: Express Care Visit Vital Signs Vital signs: Vital Signs Temperature 97.9 F 07/07/24 09:00 Pulse Rate 129 H 07/07/24 09:00 Respiratory Rate 20 07/07/24 09:00 Blood Pressure 128/86 07/07/24 09:00 Pulse Oximetry 99 07/07/24 09:00 Oxygen Delivery Room Air 07/07/24 09:00 Temperature 97.9 F 07/07/24 09:00 Pulse Rate 129 H 07/07/24 09:00 Respiratory Rate 20 07/07/24 09:00 Blood Pressure 128/86 07/07/24 09:00 Pulse Oximetry 99 07/07/24 09:00 Oxygen Delivery Room Air 07/07/24 09:00 Reviewed Transfer Transfered to: [facility] Transportation: Other (Private vehicle) Transfer rationale: Seizure, higher level care Accepting physician: Dr. Wise MDM - Seizure MDM Narrative Medical decision making narrative: Given the patient's symptoms is likely she possibly had a seizure today or syncopal episode. It is recommended that the patient seek a higher level care and proceed immediately to the emergency department. Grandmother and patient are agreeable to [facility]. Called report over to [facility] and spoke with Meghana VIRK who is aware of this patient and Dr. Wise who accepted this patient. Offered EMS to take patient over the hospital and they declined. Grandmother said she will take the patient overall more hospital immediately. Patient advised to remain NPO and proceed immediately to the emergency department Differential Diagnosis Differential diagnosis: Likely generalized seizure and other (Syncope, seizure-like activity) Critical Care Time Critical Care Time Critical Care Time: No Discharge Plan Discharge Clinical Impression: Witnessed seizure-like activity Patient Disposition: Acute Care Hospital Condition: Stable Patient Language: Czech Follow-up/Referrals: PHYSICIAN,SOFTWARE QUALITY TEST ENGINEER [Primary Care Provider] - Stand Alone Forms: Work/School Release IP Time of Disposition: 09:22
== END 2024-07-07 09:28 | disposition short-term general hospital (02) ==
DX: R56.9 Unspecified convulsions (principal)
CPT/HCPCS: 99212; G0463